=== PATIENT | female | born 1960 | race Caucasian/White ===

== ENCOUNTER → 2020-11-27 13:14 | Outpatient (BNVA) | payer OTHER, SELFPAY | PROVIDERS: Family Provider Internal Medicine; PCP Internal Medicine; Referring Provider Internal Medicine; Visit Provider Podiatrist Foot & Ankle Surgery | DX: M79.672 Pain in left foot (principal); M79.671 Pain in right foot | CPT/HCPCS: 73630 ==

== ENCOUNTER 2021-06-18 08:15 | Outpatient (CLI) | payer OTHER, SELFPAY ==
--- NOTE | 2021-06-18 08:25 | MM_ITS ---
WS: [id number] SCREENING DIGITAL MAMMOGRAM WITH CAD HISTORY: SCREENING COMPARISON: 04/01/2019 and 06/12/2009 and 02/04/2016 Bilateral CC and MLO views submitted. Computer aided detection analyzed. Breast composition: There are scattered areas of fibroglandular density. Ovoid nodule measures 10 mm posteriorly near 11:00 of the RIGHT breast. This nodule was present on prior studies but appears slig htly larger today and further evaluation should be performed. This may be a lymph node but due to its increase in size further evaluation is recommended. No suspicious calcifications. MM/[place] [id number] IMPRESSION: BI-RADS: 0-Incomplete: Need additional imaging evaluation FOLLOW UP: Need Additional Imaging RIGHT breast: Spot compression views (CC and MLO). True ML. Ultrasound to follo w if abnormality persists.
== END 2021-06-18 08:16 | disposition home or self-care (01) ==
LOC: RADSHAW 08:20
PROVIDERS: PCP Internal Medicine; Visit Provider Internal Medicine
DX: Z12.31 Encounter for screening mammogram for malignant neoplasm of breast (principal)
CPT/HCPCS: 77067

== ENCOUNTER → 2021-11-18 09:07 | Outpatient (BNVA) | payer OTHER, SELFPAY | PROVIDERS: PCP Internal Medicine; Visit Provider Nurse Practitioner | DX: E11.42 Type 2 diabetes mellitus with diabetic polyneuropathy (principal) | CPT/HCPCS: 80053; 80061; 83036 ==

== ENCOUNTER → 2022-02-04 09:26 | Outpatient (BNVA) | payer OTHER, SELFPAY | PROVIDERS: PCP Internal Medicine; Visit Provider Nurse Practitioner | DX: E78.00 Pure hypercholesterolemia, unspecified (principal); I10 Essential (primary) hypertension; K44.9 Diaphragmatic hernia without obstruction or gangrene; E11.40 Type 2 diabetes mellitus with diabetic neuropathy, unspecified; E11.65 Type 2 diabetes mellitus with hyperglycemia; N95.2 Postmenopausal atrophic vaginitis | CPT/HCPCS: 80053; 80061; 83036 ==

== ENCOUNTER → 2022-02-16 12:55 | Outpatient (BNVA) | payer OTHER, SELFPAY | PROVIDERS: PCP Internal Medicine; Referring Provider Nurse Practitioner; Visit Provider Orthopaedic Surgery | DX: M17.12 Unilateral primary osteoarthritis, left knee (principal); M25.562 Pain in left knee | CPT/HCPCS: 73560; 73565 ==

== ENCOUNTER 2022-03-21 10:57 | Observation (INO) | payer OTHER, SELFPAY ==
[2022-03-15 10:46] VITALS: BMI 30.4
[2022-03-15 10:51] LABS: Basophils # 0.1 10^3/uL (0.0-0.1); Basophils % 0.9 %; Eosinophils # 0.4 10^3/uL (0.0-0.8); Eosinophils % 5.5 %; Hematocrit 42.9 % (37.0-47.0); Hemoglobin 14.1 g/dL (11.5-15.3); Lymphocytes # 1.8 10^3/uL (0.8-4.8); Lymphocytes % 26.4 %; Mean Corpuscular HGB Conc 32.9 g/dL (30.0-36.0); Mean Corpuscular Hemoglobin 30.3 pg (28.0-34.0); Mean Corpuscular Volume 92.3 fl (81-99); Mean Platelet Volume 8.9 fL (7.4-10.4); Monocytes # 0.4 10^3/uL (0.2-0.9); Monocytes % 5.8 %; Neutrophils # 4.14 10^3/uL (1.8-7.7); Neutrophils % 61.1 %; Nucleated Red Blood Cells % 0 %; Platelet Count 270 10^3/cmm (130-400); Red Blood Count 4.65 10^6/uL (4.1-5.3); Red Cell Distribution Width 12.4 % (12.1-15.1); White Blood Count 6.8 10^3/uL (4.0-10.0)
[2022-03-15 11:27] LABS: Anion Gap 15.3 (5-19); Blood Urea Nitrogen 18 mg/dL (8-23); Calcium 9.5 mg/dL (8.5-10.5); Carbon Dioxide 22 mmol/L (22-29); Chloride 104 mmol/L (98-107); Glomerular Filtration Rate 72.9 mL/min (90-130); Glucose 103 mg/dL (65-115); Osmolality Calculated 286 mOsm/kg (285-295); Potassium 4.3 mmol/L (3.5-5.1); Sodium 137 mmol/L (136-145)
--- NOTE | 2022-03-15 14:52 | ANES.PREANE2 ---
Pre-Anesthetic Assessment Height/Weight: Height 1.73 m Weight 90.718 kg Operation Date: 03/21/22 12:15 Proposed Procedures p Total Knee Arthroplasty 59800/M17.12(Left) - Darnell Steve MD Familial anesthetic complications: none Was Beta Kenna taken within 24 hours: N/A Was Clonidine taken within 24 hours: N/A Social No alcohol and No tobacco Exam alert, oriented x 3, clear to auscultation bilaterally and regular rate & rhythm Airway Submandibular: within normal limits Cervical ROM: within normal limits Mallampati: Class I Dentition: full Pulmonary None reported CV/HEM Hypertension None reported Hepatic None reported GI Gastroesophageal Reflux Disease and Hiatal Hernia Reflux on empty stomcah Metabolic Diabetes Mellitus Musc/skel Osteoarthritis/DJD Gout Neuropsych Anxiety, Depression and Neuropathy (Diabetic neuropathy ) Anesthetic Plan ASA status: 3 Anesthesia: Anesthesia Evaluation, General and Regional (specify below) (adductor canal block for post op pain control ) Other: We discussed risk and benefits of general vs spinal anesthesia including DVT risk, infection, paralysis/catastrophic nerve injury, back bruising/pain, PDPH, conversion to general in case of spinal, PONV, sore throat (sometimes severe), corneal abrasion, positioning and peripheral nerve injuries, life threatening allergic reaction, post operative ICU admission requiring prolonged intubation, stroke, heart attack, , post operative delirium and/or post operative cognitive decline, and rare incidences of recall (under general anesthesia). We discussed risk and benefits of nerve block for post op pain control including management of pain and titration of pain medications as signs/symptoms of nerve block wearing off begin to appear and/or prior bed. We discussed risk of failed nerve block, vascular injury or other vital structure injury, abscess/infection, LAST, and nerve injury. Patient elects general anesthesia with adductor canal block for post op pain control. Risk of > 500 ml blood loss (7ml/kg in children): No Medications/Allergies Home Medications Medication Instructions Recorded Confirmed Last Taken Type amlodipine 10 mg tablet 10 mg PO DAILY #90 tab 02/10/22 03/15/22 Unknown Rx liraglutide 0.6 mg/0.1 mL (18 mg/3 1.8 mg (0.3 mL) SUBCUT .COMPLEX #9 02/10/22 03/15/22 Unknown Rx mL) subcutaneous pen injector ml (Victoza 3-Marco) losartan 100 mg tablet 100 mg PO DAILY #90 tab 02/10/22 03/15/22 Unknown Rx meloxicam 7.5 mg tablet 7.5 mg PO DAILY #90 tab 02/10/22 03/15/22 Unknown Rx omeprazole 20 mg capsule,delayed 20 mg PO DAILY #90 cap 02/10/22 03/15/22 Unknown Rx release gabapentin 600 mg tablet See Rx Instructions PO .COMPLEX 02/11/22 03/15/22 Unknown Rx #180 tab atorvastatin 10 mg tablet 10 mg PO DAILY 03/15/22 03/15/22 Unknown History Allergies Allergy/AdvReac Type Severity Reaction Status Date / Time No Known Allergies Allergy Verified 03/15/22 10:42 [facility] Anesthesia Medical History Anxiety and depression Arthritis of both knees Atrophic vaginitis Chronic gout of hand Diabetes mellitus with hyperglycemia, without long-term current use of insulin Diabetic neuropathy Diverticulosis Essential hypertension Hiatal hernia Hypercholesteremia Insomnia OA (osteoarthritis) Surgical History History of appendectomy History of hysterectomy History of partial surgical removal of colon Family History Mother Diabetes Cancer Brother Cancer Lung disease Other Hypertension Denies family history of Chronic kidney disease (CKD) Stroke Social History Smoking and tobacco status: never smoked Second hand smoke exposure: No Smoking risk assessment/counseling performed?: No Alcohol intake: never Desire information about alcohol rehabilitation?: No Counseling given: No Desire information about substance/drug rehabilitation?: No Counseling given: No Adopted: No Caregiver/support person: No Lives independently: Yes Household members: spouse Housing: House Number of children: 3 service: No Current occupational status: unemployed Pets and animals: Yes Current gender identity: Female Data Anesthesia : 03/15/22 10:42 03/15/22 10:42 Short CBC 03/15/22 Range/Units 10:42 WBC 6.8 (4.0-10.0) 10^3/uL Hgb 14.1 (11.5-15.3) g/dL Hct 42.9 (37.0-47.0) % MCV 92.3 (81-99) fl Plt Count 270 (130-400) 10^3/cmm Neut % (Auto) 61.1 % Neut # (Auto) 4.14 (1.8-7.7) 10^3/uL BMP 03/15/22 10:42 Sodium 137 Potassium 4.3 Chloride 104 Carbon Dioxide 22 BUN 18 Creatinine 0.8 Glucose 103 Calcium 9.5 Cardiac Studies: No Data to Display
[2022-03-21] VITALS (18 sets, daily range): BP systolic 104–152; BP diastolic 56–89; PULSE 82–104; RESP 12–20; TEMP 36.2–37.1; O2SAT 91–99; BMI 30.4
[2022-03-21] MEDS: scopolamine 1.5 Patch 1 PATCH TRANSDERMA (07:57)
[2022-03-21] MEDS: sodium chloride 0.9% 1,000 ML 30 ML IV (08:00)
[2022-03-21] MEDS: oxyCODONE 20 mg ER (12 HR) Tablet PO (09:04)
[2022-03-21] MEDS: gabapentin 300 mg Capsule PO ×3 (09:04→21:13)
[2022-03-21] MEDS: CELEcoxib 200 mg Capsule 400 MG PO (09:05)
[2022-03-21] MEDS: acetaminophen 500 mg Tablet 1000 MG PO (09:05)
--- NOTE | 2022-03-21 09:07 | P.ANESUD_ITS ---
Pre-Anesthetic Update Pre-Anesthetic Assessment: Date of Surgery/Procedure: 03/21/22 Preop Jessiac gnosis: OsteoarthritisLeft knee Proposed Procedure: Operation Date: 03/21/22 09:15 Proposed Procedures p Total Knee Arthroplasty 81072/M17.12(Left) - Darnell Steve MD Any changes to Pre-Anesthetic Assessment?: No Last Intake: Intake Last Liquid Date 03/20/22 Last Liquid Time 22:30 Last Solid Date 03/20/22 Last Solid Time 19:30 Vitals: Temperature 97.6 F 03/21/22 07:39 Temperature Source Temporal Artery S can 03/21/22 07:39 Pulse Rate 84 03/21/22 07:39 Pulse Rhythm 03/21/22 07:43 Pulse Strength 3+ Normal 03/21/22 07:43 Respiratory Rate 18 03/21/22 07:39 Blood Pressure 152/89 03/21/22 07:39 Blood Pressure Jenny n 110 03/21/22 07:39 Pulse Oximetry 96 03/21/22 07:39 Oxygen Delivery Me thod 03/21/22 07:43 Exam: Pre-Anes Outpt Exam: alert, oriented x 3, clear to auscultation bilaterally and regular rate & rhythm Cardiac Studies: No Data to Display
--- NOTE | 2022-03-21 09:19 | W.PM.OPSFHP ---
Same Day Surgery H&P Indication for Procedure/HPI DATE OF PROCEDURE: March 21, 2022 CHIEF COMPLAINT/INDICATIONFOR SURGICAL PROCEDURE: Osteoarthritis left knee here for left total knee arthroplasty PREOP DIAGNOSIS: OsteoarthritisLeft knee PLANNED PROCEDURE: Operation Date: 03/21/22 09:15 Proposed Procedures p Total Knee Arthroplasty 23142/M17.12(Left) - Darnell Steve MD 61-year-old with severe activity limiting left knee pain. Has failed medications including meloxicam and gabapentin. Distant history of arthroscopy. Here for elective left total knee Medications/Allergies* Home Medications Medication Instructions Recorded Confirmed Type atorvastatin 10 mg tablet 10 mg PO DAILY 03/15/22 03/21/22 History Allergies/Adverse Reactions Allergy/AdvReac Type Severity Reaction Status Date / Time No Known Allergies Allergy Verified 03/15/22 10:42 Current Medications: Generic Name Dose Route Start Last Admin Trade Name Freq PRN Reason Stop Dose Admin Sodium Chloride 1,000 mls @ 30 mls/hr 03/21/22 07:45 03/21/22 08:00 Sodium Chloride 0.9% IV 03/22/22 07:44 30 mls/hr .Q24H LUIZA Administration Pertinent History/Comorbid Conditions* Medical History (Updated 02/13/22 @ 16:58 by LEANN La) Anxiety and depression Arthritis of both knees Atrophic vaginitis Chronic gout of hand Diabetes mellitus with hyperglycemia, without long-term current use of insulin Diabetic neuropathy Diverticulosis Essential hypertension Hiatal hernia Hypercholesteremia Insomnia OA (osteoarthritis) Surgical History (Updated 12/01/20 @ 18:18 by Tyler Millan DPM) History of appendectomy History of hysterectomy History of partial surgical removal of colon Family History (Updated 11/22/21 @ 12:05 by ANKUR Shahid) Diabetes Mother Lung disease Brother Cancer Mother Brother Hypertension Denies family history of Chronic kidney disease (CKD) Stroke Social History Smoking and tobacco status: never smoked Second hand smoke exposure: No Smoking risk assessment/counseling performed?: No Alcohol intake: never Desire information about alcohol rehabilitation?: No Counseling given: No Desire information about substance/drug rehabilitation?: No Counseling given: No Adopted: No Caregiver/support person: No Lives independently: Yes Household members: spouse Housing: House Number of children: 3 service: No Current occupational status: unemployed Pets and animals: Yes Current gender identity: Female Pertinent Exam Findings alert, oriented x 3, clear to auscultation bilaterally and operative site marked Recommendations Surgery/Procedure today Coding Level of Care Code Acute Certified Surgical Tech/First Assistant for Brittaney Rosario
--- NOTE | 2022-03-21 10:11 | ANES.PROC ---
Anesthesia Procedures Procedure/Date: 03/21/22 Nerve Block ^: Nerve Block 1: Main Anesthesia: general anesthesia Time Out Performed: Yes Consent: requested by attending/covering physician, from patient, risks and benefits reviewed and patient agrees to proceed Nerve block location: adductor canal (left) Anesthesia monitors applied: pulse oximetry, EKG, BP cuff and oxygen Nerve block position: supine Anesthetic Used: ropivicaine 0.5% Amount of anesthesia used (mL): 20 Ultrasound used to: recognize landmarks Nerve Stimulator Used?: No Interscalene/Femoral BLK: 4 stimuplex 21 g needle used for position and inplane approach Injection: neg aspiration of heme Patient Tolerated Procedure: well Complications: none
[2022-03-21] MEDS: tranexamic acid 1,000 mg/10mL SDV 1000 MG IV (10:34)
[2022-03-21] MEDS: ketorolac 30 mg/mL INJ XX (10:35)
[2022-03-21] MEDS: tranexamic acid 1,000 mg/10mL SDV 1000 MG XX (10:35)
[2022-03-21] MEDS: EPINEPHrine 1 mg/mL INJ XX (10:35)
--- NOTE | 2022-03-21 11:39 | P.OP_ITS ---
Operative Report Date of procedure: March 21, 2022 Pre-op diagnosis: Preop Diagnosis OsteoarthritisLeft knee Post-op diagnosis: same Post-op diagnosis: Same Post-op findings: Same Procedure done: Left total knee arthroplasty Implants: [place] total knee arthroplasty components were used includin) Size 4 triathalon cruciate retaining femoral component 2) Size 5 Tritanium tibial component 3) 35 mm /10 mm thickness Tritanium asymetric patella 4) Size 5/9 mm thickness CR tibial bearing insert Pathology: none sent Surgeon: Darnell Steve Anesthesia: Nerve Block (Spinal, adductor canal block) Estimated blood loss (mL): 300 Findings: The patient had eburnated exposed subchondral bone in the medial compartment and patellofemoral compartment Condition: stable Disposition: PACU Procedure: The patient was taken to the operating room. Patient was given 1 g of tranexamic acid . The above anesthesia provided by the anesthesia service. A timeout was performed. The patient was prepped and draped in the usual fashion with the lower extremity exposed. A anterior incision was made, midline, from a point proximal to the patella to the distal tibial tubercle. The knee was entered through a medial parapatellar approach. The patella could be displaced laterally and the knee flexed. The patellar fat pad was resected to provide better visibility. Retractors were placed medially and laterally adjacent to the tibial plateau. The femoral canal was drilled in line with the longitudinal axis of the femur. Intramedullary femoral guide for used to make a distal femoral cut in 5 degrees of valgus, resecting 8 mm from the more prominent condyle. Next the extra medullary tibial guide was placed in alignment with the longitudinal axis of the tibia. The cutting guides were set to remove just over 9 mm from the high tibial plateau. The proximal tibia was then cut. The femoral measuring guide was then placed over the distal femur. Rotation was verified checking the relationship of the guide to the condyle and the trochlear groove. The femur was measured and cut for the desired femoral component. The desired tibial baseplate was then chosen. A trial reduction with the femur tibial baseplate and polyethylene was done, assuring that the knee was stable throughout full motion. Ligament balancing involved nothing more than a release of the deep medial collateral ligament and removal of medial tibia was prepared for the tibial baseplate. Patellar thickness was then measured. The patella was cut removing articular cartilage and prepared for appropriate size patellar button. surfaces were cleaned with a gentamicin solution. The femur tibia and patella were then press- fit into place. The posterior capsule and collateral ligaments were then injected with a solution of 100 mL of 0.2% ropivacaine, 1 mL of a 1:1000 epinephrine solution, 30 mg of Toradol, and 1 g of tranexamic acid. Final polyethylene component was then snapped into place into the tibia. The extensor retinaculum was closed with a running 1 Stratafix interrupted 1 Ethibond. The subcutaneous tissues were closed with 2-0 Vicryl and the skin was closed with a running 4-0 Stratafix. The wound was covered with a Dermabond Prineo dressing. It was covered with 4xrs and a compressive Tubigauze was applied. The patient was taken to recovery room in stable condition.
--- NOTE | 2022-03-21 11:52 | XRR_ITS ---
PROCEDURE INFORMATION: Exam: XR Left Knee Exam date and time: 03/21/2022 12:01 PM Age: 61 years old Clinical indication: Device placement; Joint replacement hardware; Prior surgery; Surgery date: Post-operative (0-2 days); Surgery type: Left total knee arthroplasty TECHNIQUE: Imaging protocol: XR Left knee. Views: 1 or 2 views. COMPARISON: CR XR knees AP WB w LT lmt ORTH 02/16/2022 12:56 PM FINDINGS: Bones/joints: The patient has undergone recent insertion of a total knee prosthesis. Some gas is present in the soft tissues from the recent surgery. There is no fracture. Soft tissues: See Bones/joints finding. XR/XR knee LT 1-2V [id number] IMPRESSION: Satisfactory appearance of the total knee prosthesis.
[2022-03-21] MEDS: HYDROcodone-acetaminophen 7.5-325 mg Tablet 1 TAB PO ×2 (12:35→17:50)
[2022-03-21] MEDS: sodium chloride 0.9% 1,000 ML 100 ML IV (12:36)
--- NOTE | 2022-03-21 16:07 | ANE.PACU2 ---
Inpatient post-anesthesia follow up: Airway intact: Yes Vital signs: Temperature 97.1 F Pulse Rate 98 Respiratory Rate 20 Blood Pressure 110/60 Pulse Oximetry 94 Oxygen Delivery Me thod Room Air Oxygen Flow Rate Fraction of Inspir ed Oxygen Hydration adequate: Yes Nausea and vomiting: No Pain level: 3 Mental status: Baseline
[2022-03-21] MEDS: acetaminophen 500 mg Tablet 650 MG PO (17:51)
--- NOTE | 2022-03-21 18:52 | PC.NURSE ---
1805 PT UP TO BATHROOM WITH STANDBY ASSISTANCE, USED WALKED WELL AND VOIDED LARGE AMOUNT AND THEN BACK TO BED, FRESH ICE PACK APPLIED TO LEFT KNEE.
[2022-03-21] MEDS: CELEcoxib 200 mg Capsule PO (21:13)
[2022-03-21] MEDS: insulin lispro 100 unit/1 mL SUBCUT (21:26)
[2022-03-21 21:28] LABS: Glucose Point of Care 151 mg/dL (70-110)
[2022-03-22] MEDS: acetaminophen 500 mg Tablet 650 MG PO ×2 (01:37→08:50)
[2022-03-22] MEDS: sodium chloride 0.9% 1,000 ML 100 ML IV (01:39)
[2022-03-22] MEDS: HYDROcodone-acetaminophen 7.5-325 mg Tablet 1 TAB PO ×2 (01:44→08:48)
[2022-03-22 04:10] VITALS: BP 109/68; PULSE 87; TEMP 36.7; O2SAT 96
[2022-03-22 04:24] LABS: Hemoglobin 11.1 g/dL (11.5-15.3)
[2022-03-22] MEDS: gabapentin 300 mg Capsule PO (06:08)
--- NOTE | 2022-03-22 07:21 | PM.DCS ---
Discharge Providers Date of Admission: 03/21/22 10:57 Date of Discharge: March 22, 2022 Attending Provider at Admission: Darnell Steve MD Attending Provider at Discharge: Darnell Steve MD Primary Care Provider: LEANN La Diagnoses at Discharge Discharge Diagnosis (1) Status post left knee replacement: Status: Acute (2) Osteoarthritis of left knee: Status: Resolved (3) Diabetes mellitus with hyperglycemia, without long-term current use of insulin: Status: Chronic Reason for Visit Reason for Visit: primary osteoarthritis Hospital Course Hospital Course The patient tolerated surgery well. They remained hemodynamically stable. They was begun on aspirin and foot pumps for DVT prophylaxis. The patient was mobilized with therapy beginning the day of surgery and by the first postoperative day independent with the walker. As the pain was adequately controlled and they were fully mobile they were discharged home. Physical Exam Narrative: On the day of discharge the knee incision was clean. They had no drainage. There is minimal swelling in the thigh and knee and the calf. No distal neurovascular deficits were noted Discharge Data Studies Completed and Pending Completed Studies During Hospitalization Category Date Time Status XR knee LT 1-2V [id number] Routine Exams 03/21/22 11:52 Completed Radiology Impressions Knee X-Ray 03/21/22 11:52 IMPRESSION: Satisfactory appearance of the total knee prosthesis. Laboratory Results WBC 6.8 10^3/uL (4.0-10.0) 03/15/22 10:42 RBC 4.65 10^6/uL (4.1-5.3) 03/15/22 10:42 Hgb 11.1 g/dL (11.5-15.3) L 03/22/22 04:19 Hct 42.9 % (37.0-47.0) 03/15/22 10:42 MCV 92.3 fl (81-99) 03/15/22 10:42 MCH 30.3 pg (28.0-34.0) 03/15/22 10:42 MCHC 32.9 g/dL (30.0-36.0) 03/15/22 10:42 RDW 12.4 % (12.1-15.1) 03/15/22 10:42 Plt Count 270 10^3/cmm (130-400) 03/15/22 10:42 MPV 8.9 fL (7.4-10.4) 03/15/22 10:42 Neut % (Auto) 61.1 % 03/15/22 10:42 Lymph % (Auto) 26.4 % 03/15/22 10:42 [place] % (Auto) 5.8 % 03/15/22 10:42 Eos % (Auto) 5.5 % 03/15/22 10:42 Baso % (Auto) 0.9 % 03/15/22 10:42 Neut # (Auto) 4.14 10^3/uL (1.8-7.7) 03/15/22 10:42 Lymph # (Auto) 1.8 10^3/uL (0.8-4.8) 03/15/22 10:42 [place] # (Auto) 0.4 10^3/uL (0.2-0.9) 03/15/22 10:42 Eos # (Auto) 0.4 10^3/uL (0.0-0.8) 03/15/22 10:42 Baso # (Auto) 0.1 10^3/uL (0.0-0.1) 03/15/22 10:42 Nucleated RBC % (auto) 0 % 03/15/22 10:42 Nucleated RBCs # 0.0 /100WBC 03/15/22 10:42 Sodium 137 mmol/L (136-145) 03/15/22 10:42 Potassium 4.3 mmol/L (3.5-5.1) 03/15/22 10:42 Chloride 104 mmol/L (98-107) 03/15/22 10:42 Carbon Dioxide 22 mmol/L (22-29) 03/15/22 10:42 Anion Gap 15.3 (5-19) 03/15/22 10:42 BUN 18 mg/dL (8-23) 03/15/22 10:42 Creatinine 0.8 mg/dL (0.5-0.9) 03/15/22 10:42 GFR Calculation 72.9 mL/min (90-130) L 03/15/22 10:42 Glucose 103 mg/dL (65-115) 03/15/22 10:42 POC Glucose 151 mg/dL (70-110) H 03/21/22 21:15 Calculated Osmolality 286 mOsm/kg (285-295) 03/15/22 10:42 Calcium 9.5 mg/dL (8.5-10.5) 03/15/22 10:42 Vitals Last Vital Signs Temp 98.0 F 03/22/22 04:10 Pulse 87 03/22/22 04:10 Resp 17 03/21/22 22:30 BP 109/68 03/22/22 04:10 Pulse Ox 96 03/22/22 04:10 Discharge Plan Discharge Patient Disposition: Home Condition: Stable Prescriptions: New hydrocodone-acetaminophen 7.5-325 mg Tablet 1 tab PO Q4H PRN (Reason: Moderate Pain) 7 Days Qty: 30 0RF acetaminophen 500 mg Tablet 650 mg PO Q8H 14 Days Qty: 55 0RF celecoxib 200 mg Capsule 200 mg PO Q12H 14 Days Qty: 28 0RF aspirin 325 mg Tablet,Delayed Release (Dr/Ec) 325 mg PO DAILY 30 Days Qty: 30 0RF Continued omeprazole 20 mg capsule,delayed release(DR/EC) 20 mg PO DAILY Qty: 90 0RF losartan 100 mg tablet 100 mg PO DAILY Qty: 90 0RF Victoza 3-Marco 0.6 mg/0.1 mL (18 mg/3 mL) pen injector 1.8 mg SUBCUT .COMPLEX Qty: 9 2RF Rx Instructions: 1.8 mg SUBCUT; amlodipine 10 mg tablet 10 mg PO DAILY Qty: 90 0RF Rx Instructions: dose increase gabapentin 600 mg tablet See Rx Instructions PO .COMPLEX Qty: 180 0RF Rx Instructions: 300mg AM 600mg HS PO; 300 mg in AM, 600mg in PM( HS) atorvastatin 10 mg tablet 10 mg PO DAILY 0RF Discontinued meloxicam 7.5 mg tablet 7.5 mg PO DAILY Qty: 90 0RF Discharge Orders: Discharge Order (Routine); Ordered 03/22/22 Ordered By: Darnell Steve Referrals: Darnell Steve MD [Physician] - 03/25/22 8:00 am Discharge Diet: Advance as tolerated Discharge Activity: Limit activity as instructed Patient Instructions: Opioid Safety Activity Restrictions/Additional Instructions: Okay to shower Keep Tubigauze sleeve in place for swelling. Okay to remove for hygiene. Apply FirstIce up to 20 min/hr for pain and swelling Take Celebrex twice a day for the next 15 days for pain , discontinue other anti-inflammatories Take Neurontin twice a day for 7 days. Take Tylenol 325mg (2 tabs) as needed 3 times a day for mild pain take oxycodone for breakthrough pain. Exercises per physical therapy. May weight-bear as tolerated on total knee arthroplasty IF HAVE ANY PROBLEMS OR QUESTIONS CALL [facility] AT AND ASK TO HAVE DR. CIARAN BURGESS. Discharge Attestations Time Spent in Discharge Care*: other Quality Metrics Clinical Quality Measures [ No reported AMI, CVA or VTE this stay] Coding Level of Care Code Acute [facility] note Diagnoses Status post left knee replacement Z96.652 Osteoarthritis of left knee M17.12 Diabetes mellitus with hyperglycemia, without long-term current use of insulin E11.65
[2022-03-22 07:43] LABS: Glucose Point of Care 124 mg/dL (70-110)
[2022-03-22 08:45] VITALS: BP 113/52; PULSE 82; RESP 16; TEMP 36.6; O2SAT 94
[2022-03-22 08:46] VITALS: BP 113/52
[2022-03-22] MEDS: losartan 50 mg Tablet 100 MG PO (08:46)
[2022-03-22] MEDS: amlodipine 10 mg Tablet PO (08:48)
[2022-03-22] MEDS: atorvastatin 40 mg Tablet 20 MG PO (08:49)
[2022-03-22] MEDS: pantoprazole DR 40 mg Tablet PO (08:50)
[2022-03-22] MEDS: CELEcoxib 200 mg Capsule PO (08:50)
[2022-03-22 10:15] VITALS: BP 113/52; PULSE 82; RESP 16; TEMP 36.6; O2SAT 94
== END 2022-03-22 10:24 | disposition home or self-care (01) ==
LOC: OBGYN 03-22 07:21
PROVIDERS: Anesthesiology; Admitting Provider Orthopaedic Surgery; PCP Nurse Practitioner; Visit Provider Orthopaedic Surgery
PROC: (CPT 27447; principal; 2022-03-21 09:15)
DX: M17.12 Unilateral primary osteoarthritis, left knee (principal); E11.65 Type 2 diabetes mellitus with hyperglycemia; K21.9 Gastro-esophageal reflux disease without esophagitis; E11.42 Type 2 diabetes mellitus with diabetic polyneuropathy; Z79.4 Long term (current) use of insulin; I10 Essential (primary) hypertension
CPT/HCPCS: 27447; 36415; 36416; 73560; 80048; 82962; 85018; 85025; 96372; 97110; 97116; 97161; 97165; C1776; G0378; J0171; J1100; J1170; J1580; J1815; J1885; J2405; J2704; J2710; J2795; J3010; J3490; J7030

== ENCOUNTER 2022-03-30 06:00 | Outpatient (RCR) | payer OTHER, SELFPAY | END 2022-04-07 23:59 | disposition home or self-care (01) | LOC: TPT 06:00 | PROVIDERS: PCP Nurse Practitioner; Referring Provider Orthopaedic Surgery; Visit Provider Orthopaedic Surgery | DX: Z47.1 Aftercare following joint replacement surgery (principal); Z96.652 Presence of left artificial knee joint; M19.90 Unspecified osteoarthritis, unspecified site | CPT/HCPCS: 97032; 97110; 97162 ==

== ENCOUNTER 2022-04-08 06:00 | Outpatient (RCR) | payer OTHER, SELFPAY | END 2022-05-08 23:59 | disposition home or self-care (01) | LOC: TPT 06:00 | PROVIDERS: PCP Nurse Practitioner; Referring Provider Orthopaedic Surgery; Visit Provider Orthopaedic Surgery | DX: Z96.652 Presence of left artificial knee joint (principal) | CPT/HCPCS: 97032; 97110 ==

== ENCOUNTER → 2022-04-21 09:07 | Outpatient (BNVA) | payer OTHER, SELFPAY | PROVIDERS: PCP Nurse Practitioner; Visit Provider Nurse Practitioner Family | DX: Z96.652 Presence of left artificial knee joint (principal) | CPT/HCPCS: 73560; 73565 ==

== ENCOUNTER → 2022-05-04 09:43 | Outpatient (BNVA) | payer OTHER, SELFPAY | PROVIDERS: PCP Nurse Practitioner; Visit Provider Nurse Practitioner | DX: E11.40 Type 2 diabetes mellitus with diabetic neuropathy, unspecified (principal); E11.65 Type 2 diabetes mellitus with hyperglycemia; Z12.11 Encounter for screening for malignant neoplasm of colon | CPT/HCPCS: 80053; 81000; 82043; 83036; 84443 ==

== ENCOUNTER 2022-05-09 06:00 | Outpatient (RCR) | payer OTHER, SELFPAY | END 2022-05-18 14:18 | disposition home or self-care (01) | LOC: TPT 06:00 | PROVIDERS: PCP Nurse Practitioner; Referring Provider Orthopaedic Surgery; Visit Provider Orthopaedic Surgery | DX: Z47.1 Aftercare following joint replacement surgery (principal); Z96.652 Presence of left artificial knee joint | CPT/HCPCS: 97032; 97110 ==

== ENCOUNTER → 2022-05-26 10:45 | Outpatient (BNVA) | payer OTHER, SELFPAY | PROVIDERS: PCP Nurse Practitioner; Visit Provider Nurse Practitioner Family | DX: Z96.652 Presence of left artificial knee joint (principal) | CPT/HCPCS: 73560; 73565 ==

== ENCOUNTER 2022-07-15 08:32 | Outpatient (CLI) | payer OTHER, SELFPAY ==
--- NOTE | 2022-07-15 08:50 | MM_ITS ---
WS: [id number] BILATERAL SCREENING DIGITAL TOMOSYNTHESIS MAMMOGRAM WITH CAD HISTORY: Screening exam. COMPARISON: 06/18/2021 and 04/01/2019 Bilateral CC and MLO views with tomosynthesis and synthetic mammography submitted. Computer aided det ection analyzed. Breast composition: There are scattered areas of fibroglandular density. No suspicious masses, microc alcifications or architectural distortion. Stable nodules in each breast. MM/[place] [id number] IMPRESSION: BI-RADS: 2-Benign FOLLOW UP: 1 Year Follow-up
== END 2022-07-15 08:33 | disposition home or self-care (01) ==
PROVIDERS: PCP Nurse Practitioner; Visit Provider Nurse Practitioner
DX: Z12.31 Encounter for screening mammogram for malignant neoplasm of breast (principal)
CPT/HCPCS: 77063; 77067

== ENCOUNTER → 2022-07-20 09:15 | Outpatient (BNVA) | payer OTHER, SELFPAY | PROVIDERS: PCP Nurse Practitioner; Visit Provider Nurse Practitioner | DX: E11.40 Type 2 diabetes mellitus with diabetic neuropathy, unspecified (principal); E11.65 Type 2 diabetes mellitus with hyperglycemia; I10 Essential (primary) hypertension; K44.9 Diaphragmatic hernia without obstruction or gangrene; Z23 Encounter for immunization | CPT/HCPCS: 80053; 80061; 82043; 83036 ==

== ENCOUNTER 2022-09-07 05:56 | Day surgery (SDC) | payer OTHER, SELFPAY ==
[2022-09-05 12:08] VITALS: BMI 32.8
[2022-09-07 06:16] VITALS: BP 134/61; PULSE 102; RESP 17; TEMP 36.7; O2SAT 98
[2022-09-07] MEDS: sodium chloride 0.9% 1,000 ML 30 ML IV (06:23)
[2022-09-07 06:25] LABS: Glucose Point of Care 129 mg/dL (70-110)
--- NOTE | 2022-09-07 06:36 | P.ANESASSM_ITS ---
Pre-Anesthetic Assessment Height/Weight: Height 1.7 m Weight 95.254 kg Temp Pulse Resp BP Pulse Ox 98.1 F 102 H 17 134/61 98 09/07/22 06:16 09/07/22 06:16 09/07/22 06:16 09/07/22 06:16 09/07/22 06:16 Preop Diagnosis: OsteoarthritisLeft knee Operation Date: 09/07/22 07:30 Proposed Procedures p Colonoscopy 63256,Z86.010(Not Applicable) - Mino Smiley DO Familial anesthetic complications: None Was Beta Kenna taken within 24 hours: N/A Was Clonidine taken within 24 hours: N/A Last intake: Intake Last Liquid Date 09/06/22 Last Liquid Time 22:00 Last Solid Date 09/05/22 Last Solid Time 18:00 Social No alcohol and No tobacco Exam alert, oriented x 3, clear to auscultation bilaterally and regular rate & rhythm Airway Submandibular: within normal limits (TMJ) Cervical ROM: within normal limits Mallampati: Class II Dentition: full History/ROS No significant history except as noted and No significant complaints Pulmonary None reported CV/HEM Hypertension None reported Hepatic None reported GI Gastroesophageal Reflux Disease (Well controlled with medication, none this AM) Sigmoidectomy Metabolic Diabetes Mellitus and Hyperlipidemia [facility] [place] Lower Back Pain and Osteoarthritis/DJD Neuropsych Neuropathy Anesthetic Plan ASA status: 3 Anesthesia: General and MAC Risk of > 500 ml blood loss (7ml/kg in children): No Medications/Allergies Home Medications Medication Instructions Recorded Confirmed Last Taken Type peg 3350-electrolytes 236 240 ml PO Q10M #4,000 mL 06/10/22 09/05/22 09/05/22 Rx gram-22.74 gram-6.74 gram-5.86 gram solution (Golytely) peg 3350-electrolytes 236 240 ml PO Q10M #4,000 mL 06/10/22 09/05/22 09/05/22 Rx gram-22.74 gram-6.74 gram-5.86 gram solution (Golytely) amlodipine 10 mg tablet 10 mg PO DAILY #90 tabs 07/20/22 09/05/22 09/05/22 Rx atorvastatin 10 mg tablet 10 mg PO DAILY #90 tabs 07/20/22 09/05/22 09/05/22 Rx gabapentin 600 mg tablet See Rx Instructions PO .COMPLEX 07/20/22 09/05/22 09/05/22 Rx #180 tabs liraglutide 0.6 mg/0.1 mL (18 mg/3 1.8 mg (0.3 mL) SUBCUT .COMPLEX #9 07/20/22 09/05/22 09/05/22 Rx mL) subcutaneous pen injector mL (Victoza 3-Marco) losartan 100 mg tablet 100 mg PO DAILY #90 tabs 07/20/22 09/05/22 09/05/22 Rx omeprazole 20 mg capsule,delayed 20 mg PO DAILY #90 caps 07/20/22 09/05/22 09/05/22 Rx release amitriptyline 50 mg tablet 50 mg PO .at bedtime #30 tabs 08/18/22 09/05/22 09/05/22 Rx Allergies Allergy/AdvReac Type Severity Reaction Status Date / Time No Known Allergies Allergy Verified 07/20/22 08:53 Current Medications Generic Name Dose Route Start Last Admin Trade Name Freq PRN Reason Stop Dose Admin Sodium Chloride 1,000 mls @ 30 mls/hr 09/07/22 06:00 09/07/22 06:23 Sodium Chloride 0.9% IV 09/08/22 05:59 30 mls/hr .Q24H LUIZA Administration PFSH Anesthesia Medical History Anxiety and depression Arthritis of both knees Atrophic vaginitis Chronic gout of hand Diabetes mellitus with hyperglycemia, without long-term current use of insulin Diabetic neuropathy Diverticulosis Essential hypertension Hiatal hernia History of colon polyps Hypercholesteremia Insomnia OA (osteoarthritis) Surgical History History of appendectomy History of colonoscopy History of hysterectomy History of knee surgery Bilateral History of partial surgical removal of colon Family History Mother Diabetes Cancer Brother Cancer Lung disease Other Hypertension Denies family history of Chronic kidney disease (CKD) Stroke Social History Smoking and tobacco status: never smoked Second hand smoke exposure: No Smoking risk assessment/counseling performed?: No Alcohol intake: never Desire information about alcohol rehabilitation?: No Counseling given: No Desire information about substance/drug rehabilitation?: No Counseling given: No Adopted: No Caregiver/support person: No Lives independently: Yes Household members: spouse Housing: House Number of children: 3 service: No Current occupational status: unemployed Pets and animals: Yes Current gender identity: Female Data Anesthesia Cardiac Studies: No Data to Display
--- NOTE | 2022-09-07 07:47 | P.HP_ITS ---
Providers/Chief Complaint Primary Care Provider: LEANN La Chief Complaint: Z86.010 History of Present Illness Madhavi Bautista is a 62 year old female here for colonoscopy Medications/Allergies Home Medications Medication Instructions Recorded Confirmed Last Taken Type peg 3350-electrolytes 236 240 ml PO Q10M #4,000 mL 06/10/22 09/05/22 09/05/22 Rx gram-22.74 gram-6.74 gram-5.86 gram solution (Golytely) peg 3350-electrolytes 236 240 ml PO Q10M #4,000 mL 06/10/22 09/07/22 09/06/22 Rx gram-22.74 gram-6.74 gram-5.86 gram solution (Golytely) amlodipine 10 mg tablet 10 mg PO DAILY #90 tabs 07/20/22 09/07/22 09/06/22 Rx atorvastatin 10 mg tablet 10 mg PO DAILY #90 tabs 07/20/22 09/07/22 09/06/22 Rx gabapentin 600 mg tablet See Rx Instructions PO .COMPLEX 07/20/22 09/07/22 09/06/22 Rx #180 tabs liraglutide 0.6 mg/0.1 mL (18 mg/3 1.8 mg (0.3 mL) SUBCUT .COMPLEX #9 07/20/22 09/07/22 09/06/22 Rx mL) subcutaneous pen injector mL (Victoza 3-Marco) losartan 100 mg tablet 100 mg PO DAILY #90 tabs 07/20/22 09/07/22 09/06/22 Rx omeprazole 20 mg capsule,delayed 20 mg PO DAILY #90 caps 07/20/22 09/07/22 09/06/22 Rx release amitriptyline 50 mg tablet 50 mg PO .at bedtime #30 tabs 08/18/22 09/07/22 09/06/22 Rx Allergies Allergy/AdvReac Type Severity Reaction Status Date / Time No Known Allergies Allergy Verified 09/07/22 06:55 PFSH Acute PFSH: Medical History Anxiety and depression Arthritis of both knees Atrophic vaginitis Chronic gout of hand Diabetes mellitus with hyperglycemia, without long-term current use of insulin Diabetic neuropathy Diverticulosis Essential hypertension Hiatal hernia History of colon polyps Hypercholesteremia Insomnia OA (osteoarthritis) Surgical History History of appendectomy History of colonoscopy History of hysterectomy History of knee surgery Bilateral History of partial surgical removal of colon Family History Mother Diabetes Cancer Brother Cancer Lung disease Other Hypertension Denies family history of Chronic kidney disease (CKD) Stroke Social History Smoking and tobacco status: never smoked Second hand smoke exposure: No Smoking risk assessment/counseling performed?: No Alcohol intake: never Desire information about alcohol rehabilitation?: No Counseling given: No Desire information about substance/drug rehabilitation?: No Counseling given: No Adopted: No Caregiver/support person: No Lives independently: Yes Household members: spouse Housing: House Number of children: 3 service: No Current occupational status: unemployed Pets and animals: Yes Current gender identity: Female Vitals/I&O/Wt Last Vital Signs Temp 98.1 F 09/07/22 06:16 Pulse 102 H 09/07/22 06:16 Resp 17 09/07/22 06:16 BP 134/61 09/07/22 06:16 Pulse Ox 98 09/07/22 06:16 Weight last 48 hrs Weight 210 lb A&P Assessment and plan (1) History of colon polyps: Plan Colonoscopy Attestations Medical Necessity Statement*: Home Coding Level of Care Code Acute [employer] for [employer] Fw[employer] Diagnoses History of colon polyps Z86.010
[2022-09-07 08:11] VITALS: BP 110/70; PULSE 101; RESP 12; TEMP 36.1; O2SAT 95
[2022-09-07 08:20] VITALS: BP 122/65; PULSE 95; RESP 18; O2SAT 100
--- NOTE | 2022-09-07 14:55 | ANE.PACU2 ---
Inpatient post-anesthesia follow up: Airway intact: Yes Vital signs: Temperature 97.0 F Pulse Rate 95 Respiratory Rate 18 Blood Pressure 122/65 Pulse Oximetry 100 Oxygen Delivery Me thod Room Air Oxygen Flow Rate Fraction of Inspir ed Oxygen Hydration adequate: Yes Nausea and vomiting: No Pain level: 1 Mental status: Baseline
== END 2022-09-07 08:34 | disposition home or self-care (01) ==
PROVIDERS: PCP Nurse Practitioner; Visit Provider Surgery
PROC: 0DJD8ZZ Inspection of Lower Intestinal Tract, Via Natural or Artificial Opening Endoscopic (ICD-10-PCS; CPT 45378; principal; 2022-09-07 07:30)
DX: Z86.010 Personal history of colon polyps (principal); K57.30 Diverticulosis of large intestine without perforation or abscess without bleeding; F41.9 Anxiety disorder, unspecified; F32.A Depression, unspecified; M17.0 Bilateral primary osteoarthritis of knee; E11.65 Type 2 diabetes mellitus with hyperglycemia; E11.40 Type 2 diabetes mellitus with diabetic neuropathy, unspecified; I10 Essential (primary) hypertension; E78.00 Pure hypercholesterolemia, unspecified; K21.9 Gastro-esophageal reflux disease without esophagitis; E78.5 Hyperlipidemia, unspecified
CPT/HCPCS: 36416; 45378; 82962; J2704; J3490; J7030

== ENCOUNTER → 2022-09-29 08:26 | Outpatient (BNVA) | payer OTHER, SELFPAY | PROVIDERS: PCP Nurse Practitioner; Visit Provider Nurse Practitioner | DX: E11.40 Type 2 diabetes mellitus with diabetic neuropathy, unspecified (principal); E11.65 Type 2 diabetes mellitus with hyperglycemia; I10 Essential (primary) hypertension; K44.9 Diaphragmatic hernia without obstruction or gangrene | CPT/HCPCS: 80053; 81000; 83036 ==

== ENCOUNTER → 2022-10-05 08:52 | Outpatient (BNVA) | payer OTHER, SELFPAY | PROVIDERS: PCP Nurse Practitioner; Visit Provider Nurse Practitioner | DX: R74.8 Abnormal levels of other serum enzymes (principal); Z11.59 Encounter for screening for other viral diseases | CPT/HCPCS: 86705; 86706; 86709; 86803; 87340 ==

== ENCOUNTER 2022-11-30 08:19 | Outpatient (CLI) | payer OTHER, SELFPAY ==
--- NOTE | 2022-11-30 08:30 | US_ITS ---
WS: [id number] RIGHT UPPER QUADRANT ULTRASOUND HISTORY: R74.8 - Abnormal levels of other serum enzymes COMPARISON: 02/05/2010 Liver: 16.8 cm in length. Normal size liver. There is coarse echotexture with loss of the normal port al triads. Attenuation and poor visualization of the entire liver. No bile duct dilatation. No mass e vident. Again, the entire liver is not penetrated. Portal Vein: Normal hepatopetal flow with monophasic waveform. Gallbladder: Normally distended gallbladder with no stones or wall thickening. CBD: 0.3 cm Pancreas: Normal size and echogenicity. Right kidney: 11.0 cm in length. Poor visualization of the RIGHT kidney. Grossly no hydronephrosis. M ass would be difficult to exclude. Aorta and IVC: Unremarkable abdominal aorta and IVC. No ascites. US/US liver [id number] IMPRESSION: 1. Normal size liver with marked hepatic steatosis. The entire liver is not we ll visualized due to attenuation. 2. Negative gallbladder. 3. Poorly visualized RIGHT kidney due to body habitus.
== END 2022-11-30 08:20 | disposition home or self-care (01) ==
PROVIDERS: PCP Nurse Practitioner; Visit Provider Nurse Practitioner
DX: R74.8 Abnormal levels of other serum enzymes (principal)
CPT/HCPCS: 76705

== ENCOUNTER → 2022-12-27 09:54 | Outpatient (BNVA) | payer OTHER, SELFPAY | PROVIDERS: PCP Nurse Practitioner; Visit Provider Nurse Practitioner | DX: E11.40 Type 2 diabetes mellitus with diabetic neuropathy, unspecified (principal); E11.65 Type 2 diabetes mellitus with hyperglycemia; I10 Essential (primary) hypertension; K44.9 Diaphragmatic hernia without obstruction or gangrene; T78.40XA Allergy, unspecified, initial encounter | CPT/HCPCS: 80053 ==

== ENCOUNTER → 2023-03-22 09:05 | Outpatient (BNVA) | payer OTHER, SELFPAY | PROVIDERS: PCP Nurse Practitioner; Visit Provider Nurse Practitioner | DX: E11.40 Type 2 diabetes mellitus with diabetic neuropathy, unspecified (principal); E11.65 Type 2 diabetes mellitus with hyperglycemia; I10 Essential (primary) hypertension; K44.9 Diaphragmatic hernia without obstruction or gangrene | CPT/HCPCS: 80053; 80061; 81000; 82043; 83036 ==

== ENCOUNTER → 2023-06-14 09:05 | Outpatient (BNVA) | payer OTHER, SELFPAY | PROVIDERS: PCP Nurse Practitioner; Visit Provider Nurse Practitioner | DX: E11.65 Type 2 diabetes mellitus with hyperglycemia (principal); E11.40 Type 2 diabetes mellitus with diabetic neuropathy, unspecified; I10 Essential (primary) hypertension; K44.9 Diaphragmatic hernia without obstruction or gangrene | CPT/HCPCS: 80053; 83036 ==

== ENCOUNTER 2023-08-04 10:10 | Outpatient (CLI) | payer OTHER, SELFPAY ==
--- NOTE | 2023-08-04 10:17 | MM_ITS ---
WS: [id number] BILATERAL SCREENING DIGITAL TOMOSYNTHESIS MAMMOGRAM WITH CAD HISTORY: SCREENING COMPARISON: 07/15/2022, 06/18/2021 and 02/04/2016 Bilateral CC and MLO views with tomosynthesis and synthetic mammography submitted. Computer aided det ection analyzed. Breast composition: There are scattered areas of fibroglandular density. No suspicious masses, microc alcifications or architectural distortion. Stable nodules within each breast. IMPRESSION: MM/[place] [id number] BI-RADS: 2-Benign FOLLOW UP: 1 Year Follow-up
== END 2023-08-04 10:11 | disposition home or self-care (01) ==
LOC: RAD 10:11
PROVIDERS: PCP Nurse Practitioner; Visit Provider Nurse Practitioner
DX: Z12.31 Encounter for screening mammogram for malignant neoplasm of breast (principal)
CPT/HCPCS: 77063; 77067

== ENCOUNTER → 2023-09-20 13:28 | Outpatient (BNVA) | payer OTHER, SELFPAY | PROVIDERS: PCP Nurse Practitioner; Visit Provider Nurse Practitioner | DX: E11.65 Type 2 diabetes mellitus with hyperglycemia; E11.40 Type 2 diabetes mellitus with diabetic neuropathy, unspecified; I10 Essential (primary) hypertension; K44.9 Diaphragmatic hernia without obstruction or gangrene; H65.90 Unspecified nonsuppurative otitis media, unspecified ear | CPT/HCPCS: 80053; 80061; 81000; 82043; 83036 ==

== ENCOUNTER → 2024-03-13 09:54 | Outpatient (BNVA) | payer OTHER, SELFPAY | PROVIDERS: PCP Nurse Practitioner; Visit Provider Nurse Practitioner | DX: E11.9 Type 2 diabetes mellitus without complications (principal); E11.65 Type 2 diabetes mellitus with hyperglycemia; M19.072 Primary osteoarthritis, left ankle and foot | CPT/HCPCS: 73630; 80053; 80061; 82043; 83036 ==

== ENCOUNTER → 2024-07-18 11:23 | Outpatient (BNVA) | payer OTHER, SELFPAY | PROVIDERS: PCP Nurse Practitioner; Visit Provider Clinical Nurse Specialist Adult Health | DX: N39.0 Urinary tract infection, site not specified (principal) | CPT/HCPCS: 81000; 87086 ==

== ENCOUNTER 2024-08-16 09:11 | Outpatient (CLI) | payer OTHER, SELFPAY ==
--- NOTE | 2024-08-16 09:16 | MM_ITS ---
WS: [id number] BILATERAL SCREENING DIGITAL TOMOSYNTHESIS MAMMOGRAM WITH CAD HISTORY: SCREENING COMPARISON: 08/04/2023, 07/15/2022 Bilateral CC and MLO views with tomosynthesis and synthetic mammography submitted. Computer aided det ection analyzed. Breast composition: There are scattered areas of fibroglandular density. No suspicious masses, microc alcifications or architectural distortion. Stable bilateral masses and calcifications. MM/MM scr BI tomosynthesis [id number] IMPRESSION: BI-RADS: 2 - Benign. FOLLOW UP: 1 Year Follow-up
== END 2024-08-16 09:12 | disposition home or self-care (01) ==
LOC: RAD 09:12
PROVIDERS: PCP Nurse Practitioner; Visit Provider Nurse Practitioner
DX: Z12.31 Encounter for screening mammogram for malignant neoplasm of breast (principal); R92.323 Mammographic fibroglandular density, bilateral breasts; R92.1 Mammographic calcification found on diagnostic imaging of breast
CPT/HCPCS: 77063; 77067

== ENCOUNTER → 2024-08-28 10:11 | Outpatient (BNVA) | payer OTHER, SELFPAY | PROVIDERS: PCP Nurse Practitioner; Visit Provider Nurse Practitioner | DX: E11.65 Type 2 diabetes mellitus with hyperglycemia (principal); I10 Essential (primary) hypertension; E11.40 Type 2 diabetes mellitus with diabetic neuropathy, unspecified; K44.9 Diaphragmatic hernia without obstruction or gangrene; Z79.4 Long term (current) use of insulin | CPT/HCPCS: 80053; 80061; 83036 ==

== ENCOUNTER → 2024-11-13 10:17 | Outpatient (BNVA) | payer OTHER, SELFPAY | PROVIDERS: PCP Nurse Practitioner; Visit Provider Nurse Practitioner | DX: E11.65 Type 2 diabetes mellitus with hyperglycemia (principal); Z79.4 Long term (current) use of insulin; E11.9 Type 2 diabetes mellitus without complications | CPT/HCPCS: 80053; 83036 ==

== ENCOUNTER → 2025-02-10 09:58 | Outpatient (BNVA) | payer OTHER, SELFPAY | PROVIDERS: PCP Nurse Practitioner; Visit Provider Nurse Practitioner | DX: E11.65 Type 2 diabetes mellitus with hyperglycemia (principal); Z79.4 Long term (current) use of insulin | CPT/HCPCS: 80053; 80061; 82043; 83036; 84443 ==

== ENCOUNTER → 2025-05-14 08:31 | Outpatient (BNVA) | payer OTHER, SELFPAY | PROVIDERS: PCP Nurse Practitioner; Visit Provider Nurse Practitioner | DX: E11.65 Type 2 diabetes mellitus with hyperglycemia (principal); Z79.4 Long term (current) use of insulin; I10 Essential (primary) hypertension | CPT/HCPCS: 80053; 80061; 83036; 84443 ==

== ENCOUNTER → 2025-08-11 07:58 | Outpatient (BNVA) | payer MEDICARE, SELFPAY | PROVIDERS: PCP Nurse Practitioner; Visit Provider Nurse Practitioner | DX: E11.9 Type 2 diabetes mellitus without complications (principal) | CPT/HCPCS: 80053; 80061; 83036; 84443 ==

== ENCOUNTER 2025-09-02 10:13 | Outpatient (CLI) | payer MEDICARE, SELFPAY ==
--- NOTE | 2025-09-02 10:22 | MM_ITS ---
WS: [id number] BILATERAL 3D TOMOSYNTHESIS DIGITAL SCREENING MAMMOGRAPHY WITH CAD CLINICAL INFORMATION: SCREENING HISTORY: Screening mammogram. No current complaints. COMPARISON: 2023 TECHNIQUE: Bilateral CC and MLO views. FINDINGS: Scattered fibroglandular densities bilaterally. No suspicious focal mass, asymmetry, calcifications, or architectural distortion. No evidence of malignancy. Intramammary lymph nodes RIGHT breast. A few incidental punctate calcifications. MM/MM scr tomosynthesis [id number] IMPRESSION: DENSITY: There are scattered areas of fibroglandular density. BI-RADS: 2 - Benign. FOLLOW UP: 1 Year Follow-up Recommend return to annual screening mammography.
== END 2025-09-02 10:14 | disposition home or self-care (01) ==
LOC: RAD 10:15
PROVIDERS: PCP Nurse Practitioner; Visit Provider Nurse Practitioner
DX: Z12.31 Encounter for screening mammogram for malignant neoplasm of breast (principal); R92.323 Mammographic fibroglandular density, bilateral breasts; N63.31 Unspecified lump in axillary tail of the right breast; R92.8 Other abnormal and inconclusive findings on diagnostic imaging of breast
CPT/HCPCS: 77063; 77067